=== PATIENT | female | born 1980 | race Caucasian/White ===

== ENCOUNTER 2016-11-28 21:08 | Emergency (ER) | payer OTHER ==
[~2016-11-28] VITALS: Ht 165.1 cm; Wt 65.0 kg
[~2016-11-28 21:08] MED LIST: ADVIL200 MG PO; BUSPAR15 MG PO; CLONAZEPAM0.5 MG PO; DEPAKOTE ER500 MG PO; DEPAKOTE500 MG PO; DIVALPROEX SOD500 M1 PO; FLONASE16 G1 BOTH NARES; GABAPENTIN600 MG PO; GEODON20 MG PO; GEODON60 MG PO; KLONOPIN0.5 M1 PO; LIORESAL10 MG PO; LYRICA25 MG PO; METHADOSE10 MG/1 ML PO; MIRALAX17 GM PO; MOBIC7.5 MG PO; NEURONTIN600 MG PO; ORSYTHIA1 EACH PO; PEN-VEE K,VEET500 MG PO; PERCOCET 5/31 TABLET PO; PROAIR HFA8.5 GM IH; REMERON15 M2 PO; REMERON30 M2 PO; RISPERDAL2 MG PO; STRATTERA25 MG PO; STRATTERA60 MG PO; TRAZODONE HCL50 MG PO; ULTRAM50 MG PO; VENTOLIN HFA18 GM IH; VISTARIL25 MG PO; XANAX1 MG PO; ZOFRAN4 MG PO
[2016-11-29 01:38] LABS: ADD MIUA? NO; BILIRUBIN NEGATIVE; BLOOD NEGATIVE; COLOR YELLOW ((YELLOW)); GLUCOSE (STRIP) NEGATIVE; KETONES NEGATIVE; LEUKOCYTES NEGATIVE; NITRITE NEGATIVE; PROTEIN (STRIP) NEGATIVE; SPECIFIC GRAVITY 1.011 (1.000-1.030); UCUL ADDED? NO; UROBILINOGEN 0.2 MG/DL (0.2-1.0)
[2016-11-29] MEDS ORDERED: DILAUDID4 MG PO (02:06)
[2016-11-29] MEDS ORDERED: XANAX1 MG PO (02:06)
[2016-11-29] MEDS ORDERED: DEPAKOTE ER500 MG PO (02:06)
[2016-11-29] MEDS ORDERED: NEURONTIN600 MG PO (02:06)
[2016-11-29] MEDS ORDERED: STRATTERA60 MG PO (02:06)
[2016-11-29] MEDS ORDERED: LYRICA25 MG PO (02:06)
[2016-11-29 02:11] VITALS: BP 105/77
== END 2016-11-29 02:20 | disposition home or self-care (01) ==
LOC: EME 21:08
DX: J06.9 Acute upper respiratory infection, unspecified (principal); R30.0 Dysuria; Z76.0 Encounter for issue of repeat prescription; H92.01 Otalgia, right ear; J45.909 Unspecified asthma, uncomplicated; F17.200 Nicotine dependence, unspecified, uncomplicated; F11.20 Opioid dependence, uncomplicated
CPT/HCPCS: 71020; 81003; 99281; 99284